=== PATIENT | male | born 1990 | race Caucasian/White ===

== ENCOUNTER 2021-03-26 10:03 | Emergency (ER) | payer MEDICAID, SELFPAY ==
--- NOTE | ~2021-03-26 | XR_ITS ---
EXAMINATION: XR CHEST CLINICAL INFORMATION: Palpitations COMPARISON: 07/03/2017 TECHNIQUE: Frontal view of the chest was obtained. FINDINGS: Stable cardiac and mediastinal silhouette. Ena are stable in appearance. No focal consolidation, effusion, edema or pneumothorax. XR/XR chest 1V IMPRESSION: No evidence of acute pulmonary process.
[2021-03-26 10:39] VITALS: BP 154/105; PULSE 100; RESP 18; TEMP 37.3; O2SAT 98; BMI 35.9
--- NOTE | 2021-03-26 10:57 | ED_ITS ---
HPI - Arrhythmia/Palpitations General Chief Complaint: Arrhythmia/Palpitations Stated Complaint: PALPATIONS Time Seen by Provider: 03/26/21 10:57 Source: patient Mode of arrival: ambulatory Limitations: no limitations History of Present Illness MD complaint: skipped beats and palpitations Onset (ago): hour(s) (2) Duration: intermittent Severity: moderate Context: occurred during rest Arrhythmia history: other (PVCs) Associated symptoms: shortness of breath, anxiety and diaphoresis Related Data Previous Rx's Medication Instructions Recorded metoprolol succinate [Toprol XL] 12.5 mg PO DAILY #30 tab 03/26/21 Allergies Allergy/AdvReac Type Severity Reaction Status Date / Time penicillin V Allergy Unknown Unverified 05/09/14 00:00 Penicillins [PCN] Allergy Unknown UNKNOWN Unverified 08/13/20 17:06 Review of Systems Review of Systems: Constitutional : No Fever, No Chills ENT/Mouth : No sore throat, No Rhinorrhea, No Swallowing Difficulty Eyes: No Eye Pain, No Swelling, No Redness Cardiovascular : No Chest Pain, positive SOB, No Orthopnea, no Edema, pos palpitations Respiratory : No Cough, No Sputum, No Wheezing, positive dyspnea Gastrointestinal : No Nausea, No Vomiting, No Diarrhea, No abdominal Pain, No Hematochezia, No Melena Genitourinary : No Dysuria, No Urinary Frequency, No Hematuria Musculoskeletal : No joint pain, No Myalgias Skin : No Skin Lesions, No rash Neuro : No Weakness, No Numbness, No Dizziness, No Headache Psych : No Anxiety/Panic, No Depression Heme/Lymph: No Bruising, No Lymphadenopathy Endocrine : No Polyuria, No Polydipsia All other systems reviewed and are negative [facility] Past Medical History Attestation statement: The following information was validated with the patient. Medical History Anxiety Heart palpitations Social History Social History (Updated 03/26/21 @ 11:13 by Anabela Aguero DO) Alcohol intake: never Smoking Status: Never smoker Use of substances other than those prescribed or required for medical reasons: No Advance Directives: No Advance Directives Information Provided: No Physical Exam Vital Signs: Vital Signs: Last Vital Signs Temp 99.2 F 03/26/21 12:19 Pulse 105 H 03/26/21 13:44 Resp 16 03/26/21 13:44 BP 143/95 H 03/26/21 13:44 Pulse Ox 98 03/26/21 13:44 Body Mass Index 35.9 Appearance: Alert. Oriented X3. No acute distress. Anxious Eyes: Pupils equal, round and reactive to light. ENT: Pharynx normal. Neck: Normal inspection. Neck supple. CVS: Normal heart rate and rhythm. Pulses normal. Respiratory: No respiratory distress. Breath sounds normal. Abdomen: Soft and nontender. Skin: Skin warm and dry. Normal skin color. Normal skin turgor. Extremities: No lower extremity edema. No calf ttp Neuro: Oriented X 3. No motor deficit. No sensory deficit. Course Course Course Narrative: no acute findings, troponin and ddimer negative at this time will DC home with cardiology follow up MDM - Arrhythmia/Palpitations MDM Narrative Medical decision making narrative: 30 yo male with hx of anxiety and palpitations - used to be on propanolol and sertraline but doesn't like how it makes him feel comes in today wtih c/o palpitations again and dyspnea, will obtain basic labs, EKG, ddimer, observe on tele may benefit from [employer] Lab Data Result diagrams: 03/26/21 11:28 03/26/21 11:28 Labs: Lab Results 03/26/21 03/26/21 03/26/21 Range/Units 11:28 11:28 11:28 WBC 8.8 (4.8-10.8) X10*3/uL RBC 6.10 H (4.60-5.80) X10*6/uL Hgb 16.6 (14.0-18.0) g/dl Hct 49.3 (42-52) % MCV 80.8 (80-98) fL MCH 27.2 (27.0-33.0) pg MCHC 33.7 (31.0-36.0) g/dl RDW 13.6 (11.0-16.0) % Plt Count 208 (160-400) X10*3/uL MPV 10.8 (9.4-12.4) fL Immature Gran % (Auto) 0.2 (0.0-0.4) % Neut % (Auto) 67.1 (45-73) % Lymph % (Auto) 25.5 (20-40) % [place] % (Auto) 5.8 (2-11) % Eos % (Auto) 1.1 (0-4) % Baso % (Auto) 0.3 (0-2) % Lymph # (Auto) 2.3 (1.2-4.9) X10*3/uL [place] # (Auto) 0.5 (0.1-1.2) X10*3/uL Eos # (Auto) 0.1 (0.0-0.4) X10*3/uL Baso # (Auto) 0.0 (0.0-0.2) X10*3/uL Abs Immat Gran (auto) 0.02 (0.00-0.03) X10*3/uL Absolute Neuts (auto) 5.9 (2.0-8.3) X10*3/uL Absolute Nucleated RBC 0.000 (0.0-0.012) X10*3/uL Nucleated RBC % (auto) 0.0 (0.0-0.2) /100WBC D-Dimer < 200 NG/ML Sodium 138 (135-145) mmol/L Potassium 4.1 (3.3-5.1) mmol/L Chloride 102 (96-108) mmol/L Carbon Dioxide 27 (22-29) mmol/L Anion Gap 13 (12-20) BUN 10 (9-16) mg/dL Creatinine 0.94 (0.5-1.4) mg/dL Estim Creat Clear Calc 153.8 Estimated GFR > 60 Random Glucose 106 (60-115) mg/dL Calcium 9.9 (8.4-10.2) mg/dL Magnesium 2.3 (1.6-2.6) mg/dL Total Bilirubin 0.7 (0.0-1.0) mg/dL Direct Bilirubin 0.2 (0.0-0.5) mg/dL AST 312 H (5-37) U/L ALT 56 H (0-40) U/L Alkaline Phosphatase 88 (39-117) U/L Troponin I High Sens (<3.5-35.0) ng/L Total Protein 7.5 (6.5-8.0) g/dL Albumin 4.7 (3.5-5.0) g/dL TSH 1.56 (0.32-4.0) uIU/mL Urine Opiates Screen (Not Detect) Ur Barbiturates Screen (Not Detect) Ur Phencyclidine Scrn (Not Detect) Ur Amphetamines Screen (Not Detect) U Benzodiazepines Scrn (Not Detect) Urine Cocaine Screen (Not Detect) U Marijuana (THC) Screen (Not Detect) 03/26/21 03/26/21 03/26/21 Range/Units 11:28 11:28 11:28 WBC (4.8-10.8) X10*3/uL RBC (4.60-5.80) X10*6/uL Hgb (14.0-18.0) g/dl Hct (42-52) % MCV (80-98) fL MCH (27.0-33.0) pg MCHC (31.0-36.0) g/dl RDW (11.0-16.0) % Plt Count (160-400) X10*3/uL MPV (9.4-12.4) fL Immature Gran % (Auto) (0.0-0.4) % Neut % (Auto) (45-73) % Lymph % (Auto) (20-40) % [place] % (Auto) (2-11) % Eos % (Auto) (0-4) % Baso % (Auto) (0-2) % Lymph # (Auto) (1.2-4.9) X10*3/uL [place] # (Auto) (0.1-1.2) X10*3/uL Eos # (Auto) (0.0-0.4) X10*3/uL Baso # (Auto) (0.0-0.2) X10*3/uL Abs Immat Gran (auto) (0.00-0.03) X10*3/uL Absolute Neuts (auto) (2.0-8.3) X10*3/uL Absolute Nucleated RBC (0.0-0.012) X10*3/uL Nucleated RBC % (auto) (0.0-0.2) /100WBC D-Dimer NG/ML Sodium (135-145) mmol/L Potassium (3.3-5.1) mmol/L Chloride (96-108) mmol/L Carbon Dioxide (22-29) mmol/L Anion Gap (12-20) BUN (9-16) mg/dL Creatinine (0.5-1.4) mg/dL Estim Creat Clear Calc Estimated GFR Random Glucose (60-115) mg/dL Calcium (8.4-10.2) mg/dL Magnesium Cancelled (1.6-2.6) mg/dL Total Bilirubin Cancelled (0.0-1.0) mg/dL Direct Bilirubin Cancelled (0.0-0.5) mg/dL AST Cancelled (5-37) U/L ALT Cancelled (0-40) U/L Alkaline Phosphatase Cancelled (39-117) U/L Troponin I High Sens < 3.5 (<3.5-35.0) ng/L Total Protein Cancelled (6.5-8.0) g/dL Albumin Cancelled (3.5-5.0) g/dL TSH Cancelled (0.32-4.0) uIU/mL Urine Opiates Screen Not Detected (Not Detect) Ur Barbiturates Screen Not Detected (Not Detect) Ur Phencyclidine Scrn Not Detected (Not Detect) Ur Amphetamines Screen Not Detected (Not Detect) U Benzodiazepines Scrn Not Detected (Not Detect) Urine Cocaine Screen Not Detected (Not Detect) U Marijuana (THC) Screen Not Detected (Not Detect) 03/26/21 Range/Units 12:58 WBC (4.8-10.8) X10*3/uL RBC (4.60-5.80) X10*6/uL Hgb (14.0-18.0) g/dl Hct (42-52) % MCV (80-98) fL MCH (27.0-33.0) pg MCHC (31.0-36.0) g/dl RDW (11.0-16.0) % Plt Count (160-400) X10*3/uL MPV (9.4-12.4) fL Immature Gran % (Auto) (0.0-0.4) % Neut % (Auto) (45-73) % Lymph % (Auto) (20-40) % [place] % (Auto) (2-11) % Eos % (Auto) (0-4) % Baso % (Auto) (0-2) % Lymph # (Auto) (1.2-4.9) X10*3/uL [place] # (Auto) (0.1-1.2) X10*3/uL Eos # (Auto) (0.0-0.4) X10*3/uL Baso # (Auto) (0.0-0.2) X10*3/uL Abs Immat Gran (auto) (0.00-0.03) X10*3/uL Absolute Neuts (auto) (2.0-8.3) X10*3/uL Absolute Nucleated RBC (0.0-0.012) X10*3/uL Nucleated RBC % (auto) (0.0-0.2) /100WBC D-Dimer NG/ML Sodium (135-145) mmol/L Potassium (3.3-5.1) mmol/L Chloride (96-108) mmol/L Carbon Dioxide (22-29) mmol/L Anion Gap (12-20) BUN (9-16) mg/dL Creatinine (0.5-1.4) mg/dL Estim Creat Clear Calc Estimated GFR Random Glucose (60-115) mg/dL Calcium (8.4-10.2) mg/dL Magnesium 2.3 (1.6-2.6) mg/dL Total Bilirubin (0.0-1.0) mg/dL Direct Bilirubin (0.0-0.5) mg/dL AST (5-37) U/L ALT (0-40) U/L Alkaline Phosphatase (39-117) U/L Troponin I High Sens (<3.5-35.0) ng/L Total Protein (6.5-8.0) g/dL Albumin (3.5-5.0) g/dL TSH 1.08 (0.32-4.0) uIU/mL Urine Opiates Screen (Not Detect) Ur Barbiturates Screen (Not Detect) Ur Phencyclidine Scrn (Not Detect) Ur Amphetamines Screen (Not Detect) U Benzodiazepines Scrn (Not Detect) Urine Cocaine Screen (Not Detect) U Marijuana (THC) Screen (Not Detect) ECG Data Attestation: I personally reviewed and interpreted this ECG as follows: ECG interpretation date: 03/26/21 ECG interpretation time: 11:08 Interpretation: Rate: 115 Rhythm: sinus tachycardia [place]: right Normal P waves. Normal AGNES. Normal QRS complex. ST T wave : normal, no COLLIN qTC: normal prior studies: no acute ischemia The study has been interpreted contemporaneously by me. . Discharge Plan Discharge Clinical Impression: Palpitations, Anxiety Patient Disposition: Home, Self-Care Instructions: Heart Palpitations (ED), Anxiety (ED) Additional Instructions: return to ED for any worsening symptoms or concerns Prescriptions: New metoprolol succinate [Toprol XL] 25 mg tablet extended release 24 hr 12.5 mg PO DAILY Qty: 30 RF: 0 Referrals: Physician,None [Primary Care Provider] - 2 days Stand Alone Forms: Work/School Release
[2021-03-26 11:36] LABS: MANUAL DIFF FLAG NO
[2021-03-26 11:48] LABS: Basophils Percent Auto 0.3 % (0-2); Eosinophils Absolute Auto 0.1 X10*3/uL (0.0-0.4); Eosinophils Percent Auto 1.1 % (0-4); Hematocrit 49.3 % (42-52); Hemoglobin 16.6 g/dl (14.0-18.0); Imm Gran Abs Auto 0.02 X10*3/uL (0.00-0.03); Imm Gran Pct Auto 0.2 % (0.0-0.4); Lymphocytes Absolute Auto 2.3 X10*3/uL (1.2-4.9); Lymphocytes Percent Auto 25.5 % (20-40); Mean Corpuscular HGB Conc 33.7 g/dl (31.0-36.0); Mean Corpuscular Hemoglobin 27.2 pg (27.0-33.0); Mean Corpuscular Volume 80.8 fL (80-98); Mean Platelet Volume 10.8 fL (9.4-12.4); Monocytes Absolute Auto 0.5 X10*3/uL (0.1-1.2); Monocytes Percent Auto 5.8 % (2-11); Neutrophils Absolute Auto 5.9 X10*3/uL (2.0-8.3); Neutrophils Percent Auto 67.1 % (45-73); Platelet Count 208 X10*3/uL (160-400); Red Cell Distribution Width 13.6 % (11.0-16.0); White Blood Count 8.8 X10*3/uL (4.8-10.8)
[2021-03-26 11:55] LABS: D Dimer < 200 NG/ML
[2021-03-26 12:08] LABS: Troponin-I High Sensitivity < 3.5 ng/L (<3.5-35.0)
[2021-03-26 12:09] LABS: Alanine Aminotransferase 56 U/L (0-40); Albumin Level 4.7 g/dL (3.5-5.0); Alkaline Phosphatase 88 U/L (39-117); Anion Gap 13 (12-20); Aspartate Amino Transferase 312 U/L (5-37); Bilirubin Direct 0.2 mg/dL (0.0-0.5); Bilirubin Total 0.7 mg/dL (0.0-1.0); Blood Urea Nitrogen 10 mg/dL (9-16); Calcium 9.9 mg/dL (8.4-10.2); Carbon Dioxide 27 mmol/L (22-29); Chloride 102 mmol/L (96-108); Creatinine Clr Calc Pharmacy 153.8; Estimated Glomerular Filt Rate > 60; Glucose Random 106 mg/dL (60-115); Magnesium 2.3 mg/dL (1.6-2.6); Potassium 4.1 mmol/L (3.3-5.1); Sodium 138 mmol/L (135-145); Total Protein 7.5 g/dL (6.5-8.0)
[2021-03-26 12:17] LABS: Amphetamine Screen Urine Not Detected (Not Detect); Barbiturates, Urine Not Detected (Not Detect); Benzodiazepines Screen Urine Not Detected (Not Detect); Cannabinoid Screen Urine Not Detected (Not Detect); Cocaine Screen Urine Not Detected (Not Detect); Opiate Screen Urine Not Detected (Not Detect); Phencyclidine Screen Urine Not Detected (Not Detect)
[2021-03-26 12:19] VITALS: BP 154/105; PULSE 100; RESP 18; TEMP 37.3; O2SAT 98
[2021-03-26 12:28] LABS: Thyroid Stimulating Hormone 1.56 uIU/mL (0.32-4.0)
[2021-03-26 13:36] LABS: Magnesium 2.3 mg/dL (1.6-2.6)
[2021-03-26 13:44] VITALS: BP 143/95; PULSE 105; RESP 16; O2SAT 98
[2021-03-26 13:59] LABS: Thyroid Stimulating Hormone 1.08 uIU/mL (0.32-4.0)
--- NOTE | 2021-03-27 07:15 | ECG_ITS ---
Test Reason : HP Blood Pressure : / mmHG Vent. Rate : 115 BPM Atrial Rate : 115 BPM P-R Int : 138 ms QRS Dur : 088 ms QT Int : 318 ms P-R-T Axes : 073 103 041 degrees QTc Int : 439 ms Sinus tachycardia Possible Left atrial enlargement Rightward axis Possible Inferior infarct , age undetermined Abnormal ECG When compared to the previous EKG of Inferior infarct criteria are now present Referred By: Anabela Aguero Electronically Signed By:DEMOND GUZMÁN MD
== END 2021-03-26 14:16 | disposition home or self-care (01) ==
PROVIDERS: Emergency Provider Emergency Medicine
DX: R00.2 Palpitations (principal); F41.9 Anxiety disorder, unspecified
CPT/HCPCS: 36415; 71045; 80048; 80076; 80307; 83735; 84443; 84484; 85025; 85379; 93005; 99283; 99285

== ENCOUNTER 2021-04-03 00:49 | Emergency (ER) | payer MEDICAID, SELFPAY ==
[2021-04-03 01:02] VITALS: BP 110/80; BP 149/102; PULSE 100; PULSE 106; RESP 15; TEMP 36.6; O2SAT 100; BMI 34.9
--- NOTE | 2021-04-03 01:27 | ED.GENADULT ---
HPI - General Adult General Chief complaint: Arrhythmia/Palpitations Stated complaint: palpitations anxiety Time Seen by Provider: 04/03/21 01:03 Source: patient Mode of arrival: ambulatory Limitations: no limitations History of Present Illness HPI narrative: Patient comes emergency room complaining anxiety and palpitations. Patient states he is known to have anxiety, states he used to be on propanolol and sertraline, however he did not like the side effects. Patient was seen here on March 26, patient was started on metoprolol 12.5 mg once a day. Patient states that today he was at home, at rest, started having a panic attack, palpitations, chest pressure. Patient states this was a worker's panic attack he has had in years, he thought he was having a heart attack and therefore called the ambulance. Once the ambulance arrived to his residence, patient's symptoms self-resolved Related Data Previous Rx's Medication Instructions Recorded metoprolol succinate [Toprol XL] 12.5 mg PO DAILY #30 tab 03/26/21 Allergies Allergy/AdvReac Type Severity Reaction Status Date / Time penicillin V Allergy Unknown Hives Verified 04/03/21 01:02 Penicillins [PCN] Allergy Unknown UNKNOWN Verified 04/03/21 01:02 Review of Systems Review of Systems: Constitutional : No Weight loss, No Fever, No Chills, No Night Sweats, No Fatigue, No Malaise ENT/Mouth : No Hearing loss, No Ear Pain, No Nasal Congestion, No Sinus Pain, No Hoarseness, No sore throat, No Rhinorrhea, No Swallowing Difficulty Eyes: No Eye Pain, No Swelling, No Redness, No Foreign Body, No Discharge, No Vision Changes Cardiovascular : No Chest Pain, No SOB, No Dyspnea on Exertion, No Orthopnea, No Edema, complaining of Palpitations Respiratory : No Cough, No Sputum, No Wheezing, No Smoke Exposure, No Dyspnea Gastrointestinal : No Nausea, No Vomiting, No Diarrhea, No Constipation, No abdominal Pain, No Hematochezia, No Melena Genitourinary : no irregular bleeding, No Dysuria, No Urinary Frequency, No Hematuria, No Urinary Incontinence, No Urgency, No Flank Pain, No Urinary Flow Changes, No Hesitancy Musculoskeletal : No joint pain, No Myalgias, No Joint Swelling Skin : No Skin Lesions, No rash Neuro : No Weakness, No Numbness, No Paresthesias, No Loss of Consciousness, No Dizziness, No Headache Psych : Complaining of anxiety and panic attack No Depression, No SI/HI/AH/VH, No Social Issues, Heme/Lymph: No Bruising, No Bleeding,No Lymphadenopathy Endocrine : No Polyuria, No Polydipsia, No Temperature Intolerance [facility] Past Medical History Medical History Anxiety Heart palpitations Social History Social History (Updated 03/26/21 @ 11:13 by Anabela Aguero DO) Alcohol intake: never Smoking Status: Never smoker Advance Directives: No Advance Directives Information Provided: No Physical Exam Vital Signs: Vital Signs: Last Vital Signs Temp 97.9 F 04/03/21 01:02 Pulse 100 04/03/21 01:02 Resp 15 04/03/21 01:02 BP 149/102 H 04/03/21 01:02 Pulse Ox 100 04/03/21 01:02 Body Mass Index 34.9 Appearance: Alert. Oriented X3. No acute distress. Eyes: Pupils equal, round and reactive to light. ENT: Pharynx normal. Neck: Normal inspection. Neck supple. No lymph nodes noted. No crepitus CVS: Normal heart rate and rhythm. Pulses normal. Normal S1 and S2 Respiratory: No respiratory distress. Breath sounds normal. No Wheezing. No rales Abdomen: Soft and nontender. No rigidity. No distention. good BS x4 Skin: Skin warm and dry. Normal skin color. Normal skin turgor. Extremities: No lower extremity edema. No lower extremity edema. No Lacerations. No Rash Neuro: Oriented X 3. No motor deficit. No sensory deficit. Moving all extermities. No slurred speech. Course Course Course Narrative: Patient's symptoms are likely related to anxiety/panic attack. I discussed with the patient that his blood pressure can tolerate a full dose metoprolol succinate 25 mg once a day. Chemistry and troponin pending. Sign-out given to Dr. Tavarez Medical Decision Making Lab Data Result diagrams: 04/03/21 01:46 04/03/21 01:46 Labs: Lab Results 04/03/21 Range/Units 01:46 WBC 9.6 (4.8-10.8) X10*3/uL RBC 5.73 (4.60-5.80) X10*6/uL Hgb 15.8 (14.0-18.0) g/dl Hct 46.3 (42-52) % MCV 80.8 (80-98) fL MCH 27.6 (27.0-33.0) pg MCHC 34.1 (31.0-36.0) g/dl RDW 13.4 (11.0-16.0) % Plt Count 208 (160-400) X10*3/uL MPV 10.6 (9.4-12.4) fL Immature Gran % (Auto) 0.3 (0.0-0.4) % Neut % (Auto) 49.3 (45-73) % Lymph % (Auto) 40.1 H (20-40) % [place] % (Auto) 6.8 (2-11) % Eos % (Auto) 3.0 (0-4) % Baso % (Auto) 0.5 (0-2) % Lymph # (Auto) 3.8 (1.2-4.9) X10*3/uL [place] # (Auto) 0.7 (0.1-1.2) X10*3/uL Eos # (Auto) 0.3 (0.0-0.4) X10*3/uL Baso # (Auto) 0.1 (0.0-0.2) X10*3/uL Abs Immat Gran (auto) 0.03 (0.00-0.03) X10*3/uL Absolute Neuts (auto) 4.7 (2.0-8.3) X10*3/uL Absolute Nucleated RBC 0.000 (0.0-0.012) X10*3/uL Nucleated RBC % (auto) 0.0 (0.0-0.2) /100WBC ECG Data Attestation: I personally reviewed and interpreted this ECG as follows: (Sinus tachycardia, heart rate 101, no ST segment depressions or elevations, no T-wave inversions, QTC 414) Discharge Plan Discharge Clinical Impression: Anxiety, Palpitations Patient Disposition: Home, Self-Care Instructions: Heart Palpitations (ED), Anxiety (ED) Additional Instructions: Please increase your dose of metoprolol succinate to 25 mg once a day. Prescriptions: No Action metoprolol succinate [Toprol XL] 25 mg tablet extended release 24 hr 12.5 mg PO DAILY Qty: 30 RF: 0
[2021-04-03 01:51] LABS: MANUAL DIFF FLAG NO
[2021-04-03 01:56] LABS: Basophils Absolute Auto 0.1 X10*3/uL (0.0-0.2); Basophils Percent Auto 0.5 % (0-2); Eosinophils Absolute Auto 0.3 X10*3/uL (0.0-0.4); Hematocrit 46.3 % (42-52); Hemoglobin 15.8 g/dl (14.0-18.0); Imm Gran Abs Auto 0.03 X10*3/uL (0.00-0.03); Imm Gran Pct Auto 0.3 % (0.0-0.4); Lymphocytes Absolute Auto 3.8 X10*3/uL (1.2-4.9); Lymphocytes Percent Auto 40.1 % (20-40); Mean Corpuscular HGB Conc 34.1 g/dl (31.0-36.0); Mean Corpuscular Hemoglobin 27.6 pg (27.0-33.0); Mean Corpuscular Volume 80.8 fL (80-98); Mean Platelet Volume 10.6 fL (9.4-12.4); Monocytes Absolute Auto 0.7 X10*3/uL (0.1-1.2); Monocytes Percent Auto 6.8 % (2-11); Neutrophils Absolute Auto 4.7 X10*3/uL (2.0-8.3); Neutrophils Percent Auto 49.3 % (45-73); Platelet Count 208 X10*3/uL (160-400); Red Blood Count 5.73 X10*6/uL (4.60-5.80); Red Cell Distribution Width 13.4 % (11.0-16.0); White Blood Count 9.6 X10*3/uL (4.8-10.8)
[2021-04-03 02:19] LABS: Anion Gap 13 (12-20); Blood Urea Nitrogen 11 mg/dL (9-16); Calcium 9.6 mg/dL (8.4-10.2); Carbon Dioxide 26 mmol/L (22-29); Chloride 103 mmol/L (96-108); Creatinine Clr Calc Pharmacy 168.6; Estimated Glomerular Filt Rate > 60; Glucose Random 95 mg/dL (60-115); Sodium 138 mmol/L (135-145)
[2021-04-03 02:24] LABS: Troponin-I High Sensitivity < 3.5 ng/L (<3.5-35.0)
--- NOTE | 2021-04-03 07:31 | ECG_ITS ---
Test Reason : PALPUATIONS Blood Pressure : / mmHG Vent. Rate : 101 BPM Atrial Rate : 101 BPM P-R Int : 158 ms QRS Dur : 088 ms QT Int : 320 ms P-R-T Axes : 065 086 035 degrees QTc Int : 414 ms Sinus tachycardia Possible Left atrial enlargement Cannot rule out inferior infarct Abnormal ECG When compared to the previous EKG of No significant changes seen Referred By: Martha Carter Electronically Signed By:Mat Ferreira
== END 2021-04-03 05:54 | disposition home or self-care (01) ==
LOC: HO.ED 01:57
PROVIDERS: Emergency Provider Emergency Medicine
DX: R00.2 Palpitations (principal); F41.9 Anxiety disorder, unspecified
CPT/HCPCS: 36415; 80048; 84484; 85025; 93005; 99283

== ENCOUNTER 2021-05-05 10:30 | Emergency (ER) | payer MEDICAID, SELFPAY ==
--- NOTE | 2021-05-05 | ECG_ITS ---
Test Reason : CHEST PAIN Blood Pressure : / mmHG Vent. Rate : 091 BPM Atrial Rate : 091 BPM P-R Int : 158 ms QRS Dur : 086 ms QT Int : 332 ms P-R-T Axes : 059 077 046 degrees QTc Int : 408 ms Normal sinus rhythm Normal ECG When compared with ECG of 03-APR-2021 01:03, No significant change was found Referred By: Generic ED Physician Electronically Signed By:DEMOND GUZMÁN MD
--- NOTE | ~2021-05-05 | XR_ITS ---
EXAMINATION: XR CHEST CLINICAL INFORMATION: Chest pain COMPARISON: None TECHNIQUE: Frontal view of the chest was obtained. FINDINGS: No significant abnormality is noted involving the heart, lungs, mediastinum, bony thorax or soft tissues. XR/XR chest 1V IMPRESSION: Unremarkable chest examination.
[2021-05-05 10:54] VITALS: BP 139/100; PULSE 94; RESP 18; TEMP 36.6; O2SAT 100; BMI 35.2
--- NOTE | 2021-05-05 11:06 | ED.CHESTPAIN ---
HPI - Chest Pain General Chief Complaint: Chest Pain Stated Complaint: cp Time Seen by Provider: 05/05/21 10:32 Source: patient and EMS Mode of arrival: EMS Limitations: no limitations History of Present Illness HPI narrative: 30 y/o male with history of anxiety presenting to the ER from work via EMS with acute onset of chest pain and SOB today in the setting of an anxiety attack. He has a history of similar presentations and has been trying to get in with the partial program here. He reports yesterday he was feeling sniffley and lost his sense of taste and smell. He had return of his sense today and went to work. 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 He was breathing heavy and having tingling in his left hand. He was anxious and had palpitations. MD complaint: chest pain and other (anxiety ) Onset (ago): hour(s) Timing of current episode: episodic Prior episodes: Yes Onset: during exertion Pain location: left chest Pain radiation: left arm Severity: moderate Quality: heaviness Relieving factors: rest Exacerbating factors: stress Related Data Previous Rx's Medication Instructions Recorded metoprolol succinate [Toprol XL] 12.5 mg PO DAILY #30 tab 03/26/21 hydroxyzine HCl 25 mg PO BID PRN #7 tab 04/03/21 hydroxyzine HCl 25 mg PO TID PRN #10 tab 05/05/21 Allergies Allergy/AdvReac Type Severity Reaction Status Date / Time penicillin V Allergy Unknown Hives Verified 04/03/21 01:02 Penicillins [PCN] Allergy Unknown UNKNOWN Verified 04/03/21 01:02 Review of Systems Review of Systems: Constitutional: No Fever, No Chills ENT/Mouth: No sore throat, No Rhinorrhea, No Swallowing Difficulty Eyes: No Eye Pain, No Swelling, No Redness Cardiovascular: + Chest Pain, + SOB, No Orthopnea, No Edema Respiratory: No Cough, No Sputum, No Wheezing, No dyspnea Gastrointestinal: No Nausea, No Vomiting, No Diarrhea, No abdominal Pain Genitourinary: No Dysuria, No Urinary Frequency, No Hematuria Musculoskeletal: No joint pain, No Myalgias Skin: No Skin Lesions, No rash Neuro: No Weakness, No Numbness, No Dizziness, + Headache Psych: + Anxiety/Panic, No Depression Heme/Lymph: No Bruising, No Lymphadenopathy Endocrine: No Polyuria, No Polydipsia [facility] Past Medical History Attestation statement: The following information was validated with the patient. Medical History Anxiety Heart palpitations Social History Social History (Updated 03/26/21 @ 11:13 by Anabela Aguero DO) Alcohol intake: never Advance Directives: No Advance Directives Information Provided: Yes Physical Exam Vital Signs: Vital Signs: Last Vital Signs Temp 98 F 05/05/21 10:54 Pulse 94 05/05/21 10:54 Resp 18 05/05/21 10:54 BP 139/100 H 05/05/21 10:54 Pulse Ox 100 05/05/21 10:54 Body Mass Index 35.2 Appearance: Alert. Oriented X3. No acute distress. Eyes: Pupils equal, round and reactive to light. ENT: Pharynx normal. Neck: Normal inspection. Neck supple. CVS: Normal heart rate and rhythm. Pulses normal. Respiratory: No respiratory distress. Breath sounds normal. Abdomen: Soft and nontender. +BS x4 Skin: Skin warm and dry. Normal skin color. Normal skin turgor. No rashes. Extremities: No lower extremity edema. Neuro: Oriented X 3. No motor deficit. No sensory deficit. Course Course Course Narrative: 30 y/o male with history of anxiety and palpitations presenting with acute anxiety attack today at work associated with chest heaviness and SOB. Both are now resolved. History of the same. Non-toxic appearing. Will get CXR, lab workup and EKG. Anticipate this is all related to ongoing untreated anxiety but will r/o cardiac and pulmonary causes. CARE team consult placed to help facilitate getting into a local partial program for therapy and support. Reevaluation(s) Reevaluation #1: Lab workup is unremarkable. CXR negative. He remains chest pain free without SOB. CARE team consult pending. Patient appreciative. Reevaluation #2: Stable for discharge home with outpatient services. [facility] - Chest Pain Medical Records Data Attestation: I reviewed the patient's medical records. Lab Data Attestation: I reviewed the patient's lab results. Result diagrams: 05/05/21 11:02 05/05/21 11:02 Labs: Lab Results 05/05/21 05/05/21 05/05/21 Range/Units 11:02 11:02 11:02 WBC 8.0 (4.8-10.8) X10*3/uL RBC 5.63 (4.60-5.80) X10*6/uL Hgb 15.4 (14.0-18.0) g/dl Hct 46.0 (42-52) % MCV 81.7 (80-98) fL MCH 27.4 (27.0-33.0) pg MCHC 33.5 (31.0-36.0) g/dl RDW 14.1 (11.0-16.0) % Plt Count 203 (160-400) X10*3/uL MPV 11.4 (9.4-12.4) fL Immature Gran % (Auto) 0.3 (0.0-0.4) % Neut % (Auto) 61.8 (45-73) % Lymph % (Auto) 26.2 (20-40) % Kingfisher % (Auto) 7.4 (2-11) % Eos % (Auto) 3.8 (0-4) % Baso % (Auto) 0.5 (0-2) % Lymph # (Auto) 2.1 (1.2-4.9) X10*3/uL Kingfisher # (Auto) 0.6 (0.1-1.2) X10*3/uL Eos # (Auto) 0.3 (0.0-0.4) X10*3/uL Baso # (Auto) 0.0 (0.0-0.2) X10*3/uL Abs Immat Gran (auto) 0.02 (0.00-0.03) X10*3/uL Absolute Neuts (auto) 4.9 (2.0-8.3) X10*3/uL Absolute Nucleated RBC 0.000 (0.0-0.012) X10*3/uL Nucleated RBC % (auto) 0.0 (0.0-0.2) /100WBC Hold Blue Top SEE NOTE Sodium 138 (135-145) mmol/L Potassium 4.1 (3.3-5.1) mmol/L Chloride 109 H (96-108) mmol/L Carbon Dioxide 22 (22-29) mmol/L Anion Gap 11 L (12-20) BUN 11 (9-16) mg/dL Creatinine 0.82 (0.5-1.4) mg/dL Estim Creat Clear Calc 174.6 Estimated GFR > 60 Random Glucose 104 (60-115) mg/dL Calcium 9.4 (8.4-10.2) mg/dL Magnesium 2.1 (1.6-2.6) mg/dL Total Bilirubin 0.2 (0.0-1.0) mg/dL Direct Bilirubin < 0.2 (0.0-0.5) mg/dL AST 17 D (5-37) U/L ALT 23 (0-40) U/L Alkaline Phosphatase 77 (39-117) U/L Troponin I High Sens (<3.5-35.0) ng/L Total Protein 6.7 (6.5-8.0) g/dL Albumin 4.3 (3.5-5.0) g/dL Coronavirus (PCR) (Negative) Influenza Type A (PCR) (Negative) Influenza Type B (PCR) (Negative) RSV RNA Qual (PCR) (Negative) 05/05/21 05/05/21 Range/Units 11:02 11:02 WBC (4.8-10.8) X10*3/uL RBC (4.60-5.80) X10*6/uL Hgb (14.0-18.0) g/dl Hct (42-52) % MCV (80-98) fL MCH (27.0-33.0) pg MCHC (31.0-36.0) g/dl RDW (11.0-16.0) % Plt Count (160-400) X10*3/uL MPV (9.4-12.4) fL Immature Gran % (Auto) (0.0-0.4) % Neut % (Auto) (45-73) % Lymph % (Auto) (20-40) % Kingfisher % (Auto) (2-11) % Eos % (Auto) (0-4) % Baso % (Auto) (0-2) % Lymph # (Auto) (1.2-4.9) X10*3/uL Kingfisher # (Auto) (0.1-1.2) X10*3/uL Eos # (Auto) (0.0-0.4) X10*3/uL Baso # (Auto) (0.0-0.2) X10*3/uL Abs Immat Gran (auto) (0.00-0.03) X10*3/uL Absolute Neuts (auto) (2.0-8.3) X10*3/uL Absolute Nucleated RBC (0.0-0.012) X10*3/uL Nucleated RBC % (auto) (0.0-0.2) /100WBC Hold Blue Top Sodium (135-145) mmol/L Potassium (3.3-5.1) mmol/L Chloride (96-108) mmol/L Carbon Dioxide (22-29) mmol/L Anion Gap (12-20) BUN (9-16) mg/dL Creatinine (0.5-1.4) mg/dL Estim Creat Clear Calc Estimated GFR Random Glucose (60-115) mg/dL Calcium (8.4-10.2) mg/dL Magnesium (1.6-2.6) mg/dL Total Bilirubin (0.0-1.0) mg/dL Direct Bilirubin (0.0-0.5) mg/dL AST (5-37) U/L ALT (0-40) U/L Alkaline Phosphatase (39-117) U/L Troponin I High Sens < 3.5 (<3.5-35.0) ng/L Total Protein (6.5-8.0) g/dL Albumin (3.5-5.0) g/dL Coronavirus (PCR) NEGATIVE (Negative) Influenza Type A (PCR) NEGATIVE (Negative) Influenza Type B (PCR) NEGATIVE (Negative) RSV RNA Qual (PCR) NEGATIVE (Negative) ECG Data ECG #1: Attestation: I personally reviewed and interpreted this ECG as follows: ECG interpretation date: 05/05/21 ECG interpretation time: 12:00 Prior ECG tracings: available for review Interpretation: normal sinus rhythm, HR 91 bpm, normal OH interval. NO ST depressions or elevations. unchanged from prior EKG Discharge Plan Discharge Clinical Impression: Anxiety Patient Disposition: Home, Self-Care Instructions: Anxiety (ED) Additional Instructions: You lab workup today was unremarkable. Your chest x-ray was normal. Your EKG was unremarkable. Recommend following up with the partial program here at the hospital for your ongoing anxiety. As needed anxiety medication was sent to your pharmacy. Follow up with your doctor. Prescriptions: New hydroxyzine HCl 25 mg tablet 25 mg PO TID PRN (Reason: anxiety) Qty: 10 RF: 0 No Action metoprolol succinate [Toprol XL] 25 mg tablet extended release 24 hr 12.5 mg PO DAILY Qty: 30 RF: 0 hydroxyzine HCl 25 mg tablet 25 mg PO BID PRN (Reason: anxiety) Qty: 7 RF: 0
[2021-05-05 11:07] LABS: MANUAL DIFF FLAG NO
[2021-05-05 11:12] LABS: Basophils Percent Auto 0.5 % (0-2); Eosinophils Absolute Auto 0.3 X10*3/uL (0.0-0.4); Eosinophils Percent Auto 3.8 % (0-4); Hemoglobin 15.4 g/dl (14.0-18.0); Imm Gran Abs Auto 0.02 X10*3/uL (0.00-0.03); Imm Gran Pct Auto 0.3 % (0.0-0.4); Lymphocytes Absolute Auto 2.1 X10*3/uL (1.2-4.9); Lymphocytes Percent Auto 26.2 % (20-40); Mean Corpuscular HGB Conc 33.5 g/dl (31.0-36.0); Mean Corpuscular Hemoglobin 27.4 pg (27.0-33.0); Mean Corpuscular Volume 81.7 fL (80-98); Mean Platelet Volume 11.4 fL (9.4-12.4); Monocytes Absolute Auto 0.6 X10*3/uL (0.1-1.2); Monocytes Percent Auto 7.4 % (2-11); Neutrophils Absolute Auto 4.9 X10*3/uL (2.0-8.3); Neutrophils Percent Auto 61.8 % (45-73); Platelet Count 203 X10*3/uL (160-400); Red Blood Count 5.63 X10*6/uL (4.60-5.80); Red Cell Distribution Width 14.1 % (11.0-16.0)
[2021-05-05 11:29] LABS: Alanine Aminotransferase 23 U/L (0-40); Albumin Level 4.3 g/dL (3.5-5.0); Alkaline Phosphatase 77 U/L (39-117); Anion Gap 11 (12-20); Aspartate Amino Transferase 17 U/L (5-37); Bilirubin Direct < 0.2 mg/dL (0.0-0.5); Bilirubin Total 0.2 mg/dL (0.0-1.0); Blood Urea Nitrogen 11 mg/dL (9-16); Calcium 9.4 mg/dL (8.4-10.2); Carbon Dioxide 22 mmol/L (22-29); Chloride 109 mmol/L (96-108); Creatinine Clr Calc Pharmacy 174.6; Estimated Glomerular Filt Rate > 60; Glucose Random 104 mg/dL (60-115); Magnesium 2.1 mg/dL (1.6-2.6); Potassium 4.1 mmol/L (3.3-5.1); Sodium 138 mmol/L (135-145); Total Protein 6.7 g/dL (6.5-8.0)
[2021-05-05 11:48] LABS: Influenza A PCR NEGATIVE (Negative); Influenza B PCR NEGATIVE (Negative); Resp Syncy Virus RNA Qual PCR NEGATIVE (Negative); SARS COV2 PCR INHOUSE NEGATIVE (Negative)
[2021-05-05 11:52] LABS: Troponin-I High Sensitivity < 3.5 ng/L (<3.5-35.0)
--- NOTE | 2021-05-05 14:24 | MHC.CARE ---
1230: Met with pt upon receiving a consult order from BEBO Zimmer. Pt is looking for a Partial Hospitalization program and/or a counselor. Pt has been experiencing increasing anxiety, panic attacks and nightmares. Pt reports that he suspects he may have ?mild? depression. Pt expressed his frustration with the poor outcomes of his efforts in getting into a partial program. Pt has had a few intake appointments but has been unable to attend them as he was working. Pt cannot take time off for these appointments as he has only been with his job for 2 weeks. Pt presently has Mondays and Tuesdays off. CARE TEAM contacted [facility] and scheduled an intake appointment for MondayMay 11. Pt advised of this and the structure of the program was explained. This program may conflict with pt?s work schedule, as such, a list of PHP numbers at other facilities was provided. Pt will also be referred to [facility]. This was discussed and with agreed upon by pt and BEBO Singh.
== END 2021-05-05 14:12 | disposition home or self-care (01) ==
PROVIDERS: Physician Assistant; Emergency Provider Emergency Medicine
DX: F41.9 Anxiety disorder, unspecified (principal); Z20.822 Contact with and (suspected) exposure to COVID-19; R43.8 Other disturbances of smell and taste
CPT/HCPCS: 0241U; 36415; 71045; 80048; 80076; 83735; 84484; 85025; 93005; 99283

== ENCOUNTER 2021-06-25 16:07 | Emergency (ER) | payer MEDICAID, SELFPAY ==
[2021-06-25 16:37] VITALS: BP 170/105; PULSE 103; RESP 20; TEMP 37.1; O2SAT 98; BMI 33.0
[2021-06-25 17:23] LABS: COVID-19 Test Negative (Negative)
--- NOTE | 2021-06-25 18:56 | ED.URI ---
HPI - URI/Sore Throat General Chief Complaint: Upper Respiratory Symptoms Stated Complaint: body aches, weakness Time Seen by Provider: 06/25/21 17:27 History of Present Illness HPI Narrative: Patient with 2 complaints 1 is that he has had some body aches and felt some fatigue and has had children at home who have upper respiratory symptoms, he has no cough no shortness of breath no fever no chills next complaint is he got nervous coming in the ER and has a history of anxiety and anxiety attacks and he is feeling very anxious now and feels like he is having an anxiety attack with tingling in his fingers and feeling somewhat shaky Related Data Previous Rx's Medication Instructions Recorded metoprolol succinate 25 mg 12.5 mg PO DAILY #30 tab 03/26/21 tablet,extended release 24 hr (Toprol XL) hydroxyzine HCl 25 mg tablet 25 mg PO BID PRN #7 tab 04/03/21 hydroxyzine HCl 25 mg tablet 25 mg PO TID PRN #10 tab 05/05/21 lorazepam 1 mg tablet (Ativan) 1 mg PO BID PRN #7 tab 06/25/21 Allergies Allergy/AdvReac Type Severity Reaction Status Date / Time penicillin V Allergy Unknown Hives Verified 04/03/21 01:02 Penicillins [PCN] Allergy Unknown UNKNOWN Verified 04/03/21 01:02 Review of Systems Review of Systems: Positive for body aches and fatigue as well as anxiety Head is normocephalic atraumatic Neck is supple Respiratory no acute distress, breath sounds are full clear and equal bilaterally The heart no murmur There is no pleuritic pain The ears are clear bilaterally with normal tympanic membranes and normal canals The pharynx is clear with no redness warmth or exudate, the voice is normal The abdomen soft nontender Skin no rashes Extremities no calf tenderness or swelling no leg swelling neuro no focal deficit, patient is A&O x3, communication both expression and understanding is normal and gait and balance are normal Yes all other systems are reviewed and are negative [facility] Past Medical History Medical History Anxiety Heart palpitations Social History Social History (Updated 03/26/21 @ 11:13 by Anabela Aguero DO) Alcohol intake: never Advance Directives: No Advance Directives Information Provided: Yes Physical Exam Vital Signs: Vital Signs: Last Vital Signs Temp 98.7 F 06/25/21 16:37 Pulse 103 H 06/25/21 16:37 Resp 20 06/25/21 16:37 BP 170/105 H 06/25/21 16:37 Pulse Ox 98 06/25/21 16:37 Body Mass Index 33.0 Course Course Course Narrative: Patient had a negative COVID test and was well appearing with a normal exam and feels like his anxiety is receding and never had chest pain or difficulty breathing and is discharged MDM - URI/Sore Throat Lab Data Labs: Lab Results 06/25/21 Range/Units 16:40 COVID-19 (ELISABET) Negative (Negative) COVID-19 Clin Com See Note Discharge Plan Discharge Clinical Impression: Anxiety, Body aches Patient Disposition: Home, Self-Care Additional Instructions: Your COVID test was negative Her physical exam was normal Your pulse and blood pressure were little high which could be from anxiety Use the Ativan only if needed for an anxiety attack Get a home blood pressure cuff and check her blood pressure when you are not anxious to confirm that your not developing hypertension Return any time any worse condition or any concerns Prescriptions: New lorazepam [Ativan] 1 mg tablet 1 mg PO BID PRN (Reason: anxiety) Qty: 7 RF: 0 No Action metoprolol succinate [Toprol XL] 25 mg tablet extended release 24 hr 12.5 mg PO DAILY Qty: 30 RF: 0 hydroxyzine HCl 25 mg tablet 25 mg PO BID PRN (Reason: anxiety) Qty: 7 RF: 0 hydroxyzine HCl 25 mg tablet 25 mg PO TID PRN (Reason: anxiety) Qty: 10 RF: 0 Interventions: ED Discharge Assessment Last Done: 06/25/21 17:41 Discharge Date/Time: 06/25/21 17:47
== END 2021-06-25 17:47 | disposition home or self-care (01) ==
PROVIDERS: Emergency Provider Emergency Medicine
DX: F41.9 Anxiety disorder, unspecified (principal); M79.10 Myalgia, unspecified site; Z20.822 Contact with and (suspected) exposure to COVID-19; R53.1 Weakness
CPT/HCPCS: 36415; 87635; 99283

== ENCOUNTER 2021-08-15 15:29 | Emergency (ER) | payer MEDICAID, SELFPAY ==
[2021-08-15 15:42] VITALS: BP 133/96; BP 138/86; PULSE 94; RESP 18; TEMP 36.9; O2SAT 100; O2SAT 99; BMI 29.5
--- NOTE | 2021-08-15 16:05 | ECG_ITS ---
Test Reason : PALPATIONS Blood Pressure : / mmHG Vent. Rate : 083 BPM Atrial Rate : 083 BPM P-R Int : 152 ms QRS Dur : 094 ms QT Int : 346 ms P-R-T Axes : 033 064 039 degrees QTc Int : 406 ms Normal sinus rhythm Possible Inferior infarct , age undetermined Abnormal ECG When compared with ECG of 05-MAY-2021 11:29, No significant change was found Referred By: Mayelin Joseph Electronically Signed By:FROY MAHAJAN
[2021-08-15 16:25] VITALS: BP 147/85; PULSE 91; RESP 18; TEMP 36.7; O2SAT 99
--- NOTE | 2021-08-15 16:43 | ED_ITS ---
HPI - Arrhythmia/Palpitations General Chief Complaint: Arrhythmia/Palpitations Stated Complaint: palpitations Time Seen by Provider: 08/15/21 15:48 Source: patient and EMS Mode of arrival: EMS Limitations: no limitations History of Present Illness HPI narrative: 30-year-old male with a past medical history of anxiety here with complaints of episode of dizziness plan like he might pass out while sitting at his desk doing his work. He then tells me he started to feel his heart was racing and felt short of breath with numbness in his hands and around his mouth. This lasted about 15 minutes and then self-resolved. Patient reports on arrives to the emergency department he is feeling improved. He does have a history of panic attacks and feels this is similar. Related Data Previous Rx's Medication Instructions Recorded metoprolol succinate 25 mg 12.5 mg PO DAILY #30 tab 03/26/21 tablet,extended release 24 hr (Toprol XL) hydroxyzine HCl 25 mg tablet 25 mg PO BID PRN #7 tab 04/03/21 hydroxyzine HCl 25 mg tablet 25 mg PO TID PRN #10 tab 05/05/21 lorazepam 1 mg tablet (Ativan) 1 mg PO BID PRN #7 tab 06/25/21 hydroxyzine HCl 25 mg tablet 25 mg PO TID PRN #10 tab 08/15/21 Allergies Allergy/AdvReac Type Severity Reaction Status Date / Time penicillin V Allergy Unknown Hives Verified 04/03/21 01:02 Penicillins [PCN] Allergy Unknown UNKNOWN Verified 04/03/21 01:02 Review of Systems Review of Systems: Yes all other systems are reviewed and are negative Constitutional: Constitutional: Reports no additional constitutional complaints, Denies body ache(s), Denies chills, Denies fever(s), Denies headache(s) and Denies weakness Eyes: Eyes: Reports no additional eye complaints and Denies change in vision ENT: Reports system reviewed and no additional complaints, except as documented, Reports dizziness, Denies headache(s), Denies nasal congestion, Denies nasal discharge and Denies neck pain Cardiovascular: Cardiovascular: Reports no additional cardiovascular complaints, Denies chest pain, Denies leg edema, Reports lightheadedness, Reports palpitations and Denies dyspnea Respiratory: Respiratory: Reports no additional respiratory complaints, Denies cough and Denies dyspnea Gastrointestinal: Gastrointestinal: Reports no additional gastrointestinal complaints, Denies abdominal pain, Denies diarrhea, Denies nausea and Denies vomiting Genitourinary: Genitourinary: Denies urinary incontinence Musculoskeletal: Musculoskeletal: Reports no additional musculoskeletal complaints, Denies back pain, Denies arthralgias, Denies joint swelling, Denies neck pain, Reports numbness and Denies tingling Integumentary/Breasts: Skin/Breast: Reports system reviewed and no additional complaints, except as docu and Denies rash Neurologic: Reports system reviewed and no additional complaints, except as documented, Denies Abnormal speech present, Reports dizziness, Denies headache(s), Reports numbness, Denies tingling and Denies weakness Endocrine: Endocrine: Reports palpitations PMFSH Past Medical History Attestation statement: The following information was validated with the patient. Source: old records reviewed and nursing notes reviewed Medical History Anxiety Heart palpitations Social History Social History Alcohol intake: never Advance Directives: No Advance Directives Information Provided: No Physical Exam Vital Signs: Vital Signs: Last Vital Signs Temp 98.1 F 08/15/21 16:25 Pulse 91 08/15/21 16:25 Resp 18 08/15/21 16:25 BP 147/85 H 08/15/21 16:25 Pulse Ox 99 08/15/21 16:25 Body Mass Index 29.5 Const: General: cooperative, healthy appearing, comfortable and no acute distress Orientation/consciousness: patient oriented x3 Limitations: no limitations HENMT: Head: Yes normal to inspection Ears: hearing grossly normal bilaterally General nose exam: Normal external nose present Face and sinus: Yes normal facial exam Mouth: Normal oral and palatal mucosa present Throat: Yes posterior oropharynx normal Eyes: General: appearance normal, both eyes and all related structures Pupils: Equal, round and reactive pupils present Neck: Neck: Yes normal visual inspection Chest: Chest palpation & inspection: normal inspection of the chest Resp: Effort & Inspection: normal respiratory effort Auscultation: clear to auscultation bilaterally Cardio: Rate: regular rate Rhythm: regular rhythm Peripheral pulses: Peripheral pulses 2+ throughout GI: Inspection: Yes normal to inspection Palpation (GI): Soft to palpation and nontender Auscultation: normal bowel sounds Back/Spine/Pelvis: Thoracic/Lumbar Spine: thoracic and lumbar spine normal to inspection Skin: General skin exam: no rashes or lesions noted Neuro: General: patient oriented x3, no focal motor deficits and normal sensation to monofilament Cranial nerves: Yes CN's II-XII intact bilaterally, Yes Equal, round and reactive pupils present, Yes Bilaterally intact EOM present, Yes Nystagmus not present, Yes Normal facial strength present and Yes Midline tongue present Cognition (Neuro): normal cognition Speech: No Abnormal speech present Gait exam (Neuro): Normal gait present Motor exam (neuro): 5/5 motor strength present throughout Sensory Exam: Normal double simultaneous stimulation for sensation Coordination: [id number] test normal, [id number] test normal and tandem gait normal Extrem: General: Yes normal to inspection, Yes no pedal edema and Yes no calf tenderness Course Course Course Narrative: 30-year-old male here with episode of dizziness, palpitations, shortness of breath, numbness in the hands and around the mouth which lasted ap proximately 15 minutes. Now resolved. Patient tells me history of panic attacks and this feels similar. Normal neuro exam. Hemodynamically stable. EKG shows no acute finding. Will monitor briefly with plan for discharge home Patient tells me that he currently has a therapist that he sees. He is on the list for a psychiatrist that he may initiate medications for his anxiety. 1730-patient monitored for brief time with no recurrence of symptoms. He is feeling improved like to be discharged home. Recommend he follow-up with his therapist and continue to wait on his list for psychiatrist. Reviewed worrisome signs and symptoms of when to return to the emergency department. Comfortable discharge home. MDM - Arrhythmia/Palpitations Medical Records Attestation: I reviewed the patient's medical records. Lab Data Attestation: I reviewed the patient's lab results. ECG Data Attestation: I personally reviewed and interpreted this ECG as follows: ECG interpretation date: 08/15/21 ECG interpretation time: 16:05 Interpretation: Normal sinus rhythm with rate of 83, normal MS, normal QRS, normal QT Discharge Plan Discharge Clinical Impression: Anxiety Patient Disposition: Home, Self-Care Instructions: Anxiety (ED) Additional Instructions: Follow-up with your therapist as scheduled Stay on the list to see a psychiatrist Prescriptions: New hydroxyzine HCl 25 mg tablet 25 mg PO TID PRN (Reason: anxiety) Qty: 10 RF: 0 No Action metoprolol succinate [Toprol XL] 25 mg tablet extended release 24 hr 12.5 mg PO DAILY Qty: 30 RF: 0 hydroxyzine HCl 25 mg tablet 25 mg PO BID PRN (Reason: anxiety) Qty: 7 RF: 0 hydroxyzine HCl 25 mg tablet 25 mg PO TID PRN (Reason: anxiety) Qty: 10 RF: 0 lorazepam [Ativan] 1 mg tablet 1 mg PO BID PRN (Reason: anxiety) Qty: 7 RF: 0 Referrals: [facility] [Primary Care Provider] - 2 days Interventions: ED Discharge Assessment Last Done: 08/15/21 17:26 Discharge Date/Time: 08/15/21 18:10
== END 2021-08-15 18:10 | disposition home or self-care (01) ==
PROVIDERS: Emergency Provider Internal Medicine
DX: F41.1 Generalized anxiety disorder (principal); F43.0 Acute stress reaction; R00.2 Palpitations; R42 Dizziness and giddiness; Z79.899 Other long term (current) drug therapy
CPT/HCPCS: 93005; 99283; 99284

== ENCOUNTER 2022-06-18 02:55 | Emergency (ER) | payer MEDICAID, SELFPAY ==
--- NOTE | ~2022-06-18 | XR_ITS ---
EXAMINATION: XR CHEST CLINICAL INFORMATION: Chest pain COMPARISON: 05/05/2021 TECHNIQUE: Frontal view of the chest was obtained. FINDINGS: The lungs are clear with no focal consolidation. No evidence of pneumothorax, pulmonary edema, or pleural effusions. The cardiomediastinal silhouette is unremarkable. No acute osseous findings. XR/XR chest 1V IMPRESSION: No acute cardiopulmonary findings.
[2022-06-18 03:17] VITALS: BP 130/90; PULSE 100; O2SAT 99
--- NOTE | 2022-06-18 03:17 | ECG_ITS ---
Test Reason : CHEST TIGHTNESS Blood Pressure : / mmHG Vent. Rate : 104 BPM Atrial Rate : 104 BPM P-R Int : 138 ms QRS Dur : 088 ms QT Int : 318 ms P-R-T Axes : 076 116 036 degrees QTc Int : 418 ms Sinus tachycardia Possible Lateral infarct , age undetermined Possible Inferior infarct (cited on or before 15-AUG-2021) Abnormal ECG When compared with ECG of 15-AUG-2021 16:05, QRS axis Shifted right Referred By: Anabela Aguero Electronically Signed By:Mat Ferreira
--- NOTE | 2022-06-18 03:25 | ED.CHESTPAIN ---
HPI - Chest Pain General Chief Complaint: General Medical Stated Complaint: chest tightness/covid+ Time Seen by Provider: 06/18/22 03:16 Source: patient Mode of arrival: EMS Limitations: no limitations History of Present Illness HPI narrative: COVID + at home 06/17 symptoms started monday felt chest pain and palpitations 1 hour prior to arrival MD complaint: chest pain Pertinent past history: other (anxiety/palpitations) Onset (ago): day(s) (1 hour prior to arrival ) Timing of current episode: constant Prior episodes: Yes Onset: during rest Pain location: substernal Pain radiation: none Severity: mild Quality: tightness Relieving factors: nothing Exacerbating factors: nothing Context: recent illness Associated symptoms: dyspnea and palpitations Treatment prior to arrival: none Related Data Previous Rx's Medication Instructions Recorded metoprolol succinate 25 mg 12.5 mg PO DAILY #30 tabs 03/26/21 tablet,extended release 24 hr (Toprol XL) hydroxyzine HCl 25 mg tablet 25 mg PO BID PRN anxiety #7 tabs 04/03/21 hydroxyzine HCl 25 mg tablet 25 mg PO TID PRN anxiety #10 tabs 05/05/21 lorazepam 1 mg tablet (Ativan) 1 mg PO BID PRN anxiety #7 tabs 06/25/21 hydroxyzine HCl 25 mg tablet 25 mg PO TID PRN anxiety #10 tabs 08/15/21 Allergies Allergy/AdvReac Type Severity Reaction Status Date / Time penicillin V Allergy Unknown Hives Verified 04/03/21 01:02 Penicillins [PCN] Allergy Unknown UNKNOWN Verified 04/03/21 01:02 Review of Systems Review of Systems: Constitutional : No Weight loss, No Fever, No Chills ENT/Mouth : No sore throat, No Rhinorrhea Eyes: No Eye Pain, No Swelling Cardiovascular : pos Chest Pain, no SOB, no Dyspnea on Exertion, No Orthopnea, No Edema, pos Palpitations Respiratory : No Cough, No Sputum Gastrointestinal : no Nausea, No Vomiting, No Diarrhea, No abdominal Pain, No Hematochezia, No Melena Genitourinary : No Dysuria, No Urinary Frequency Musculoskeletal : No joint pain, No Myalgias, No Joint Swelling Skin : No Skin Lesions, No rash Neuro : No Weakness, No Numbness, No Dizziness, No Headache Psych : No Anxiety/Panic, No Depression Heme/Lymph: No Bruising, No Lymphadenopathy Endocrine : No Polyuria, No Polydipsia All other systems reviewed and are negative [facility]LY [facility] Past Medical History Attestation statement: The following information was validated with the patient. Medical History Anxiety Heart palpitations Social History Social History Alcohol intake: never Patient Tobacco Use Status: Never used Tobacco Advance Directives: No Advance Directives Information Provided: No Physical Exam Vital Signs: Vital Signs: Last Vital Signs Temp 98.7 F 06/18/22 03:32 Pulse 109 H 06/18/22 03:32 Resp 16 06/18/22 03:32 BP 123/91 H 06/18/22 03:32 Pulse Ox 98 06/18/22 03:32 O2 Del Method 06/18/22 03:32 BMI result Body Mass Index 31.8 Appearance: Alert. Oriented X3. No acute distress. Anxious Eyes: Pupils equal, round and reactive to light. ENT: Pharynx normal. Neck: Normal inspection. Neck supple. CVS: tachycardic heart rate and rhythm. Pulses normal. Respiratory: No respiratory distress. Breath sounds normal. Abdomen: Soft and nontender. Skin: Skin warm and dry. Normal skin color. Normal skin turgor. Extremities: No lower extremity edema. No calf ttp Neuro: Oriented X 3. No motor deficit. No sensory deficit. Course Course Course Narrative: ddimer negative, EKG unchanged, trop negative, stable for DC MDM - Chest Pain MDM Narrative Medical decision making narrative: 31 yo male with hxof anxiety and palpitations tested positive for COVID had pain 1 hour ago and palpitations - at this time will obtain EKG, CXR, troponin and ddimer - seems anxiety related - doubt PE, myocarditis. Dispo per results and findings. Lab Data Result diagrams: 06/18/22 03:55 06/18/22 03:55 Labs: Lab Results 06/18/22 06/18/22 06/18/22 Range/Units 03:55 03:55 03:55 WBC 6.0 (4.8-10.8) X10*3/uL RBC 5.92 H (4.60-5.80) X10*6/uL Hgb 16.5 (14.0-18.0) g/dl Hct 47.4 (42.0-52.0) % MCV 80.1 (80.0-98.0) fL MCH 27.9 (27.0-33.0) pg MCHC 34.8 (31.0-36.0) g/dl RDW 13.2 (11.0-16.0) % Plt Count 151 L (160-400) X10*3/uL MPV 11.1 (9.4-12.4) fL Immature Gran % (Auto) 0.2 (0.0-0.4) % Neut % (Auto) 46.3 (45-73) % Lymph % (Auto) 39.1 (20-40) % [place] % (Auto) 12.6 H (2-11) % Eos % (Auto) 1.5 (0-4) % Baso % (Auto) 0.3 (0-2) % Lymph # (Auto) 2.4 (1.2-4.9) X10*3/uL [place] # (Auto) 0.8 (0.1-1.2) X10*3/uL Eos # (Auto) 0.1 (0.0-0.4) X10*3/uL Baso # (Auto) 0.0 (0.0-0.2) X10*3/uL Abs Immat Gran (auto) 0.01 (0.00-0.03) X10*3/uL Absolute Neuts (auto) 2.8 (2.0-8.3) x10*3/uL Absolute Nucleated RBC 0.000 (0.0-0.012) X10*3/uL Nucleated RBC % (auto) 0.0 (0.0-0.2) /100WBC D-Dimer High Sensitivty < 150 NG/ML Sodium 135 (135-145) mmol/L Potassium 3.7 (3.3-5.1) mmol/L Chloride 101 (96-108) mmol/L Carbon Dioxide 25 (22-29) mmol/L Anion Gap 13 (12-20) BUN 11 (9-16) mg/dL Creatinine 0.93 (0.5-1.4) mg/dL Estim Creat Clear Calc 145.1 Estimated GFR > 60 Random Glucose 92 (60-115) mg/dL Calcium 9.2 (8.4-10.2) mg/dL Troponin I High Sens (<3.5-35.0) ng/L COVID-19 (ELISABET) (Negative) COVID-19 Clin Com 06/18/22 06/18/22 Range/Units 03:55 03:58 WBC (4.8-10.8) X10*3/uL RBC (4.60-5.80) X10*6/uL Hgb (14.0-18.0) g/dl Hct (42.0-52.0) % MCV (80.0-98.0) fL MCH (27.0-33.0) pg MCHC (31.0-36.0) g/dl RDW (11.0-16.0) % Plt Count (160-400) X10*3/uL MPV (9.4-12.4) fL Immature Gran % (Auto) (0.0-0.4) % Neut % (Auto) (45-73) % Lymph % (Auto) (20-40) % [place] % (Auto) (2-11) % Eos % (Auto) (0-4) % Baso % (Auto) (0-2) % Lymph # (Auto) (1.2-4.9) X10*3/uL [place] # (Auto) (0.1-1.2) X10*3/uL Eos # (Auto) (0.0-0.4) X10*3/uL Baso # (Auto) (0.0-0.2) X10*3/uL Abs Immat Gran (auto) (0.00-0.03) X10*3/uL Absolute Neuts (auto) (2.0-8.3) x10*3/uL Absolute Nucleated RBC (0.0-0.012) X10*3/uL Nucleated RBC % (auto) (0.0-0.2) /100WBC D-Dimer High Sensitivty NG/ML Sodium (135-145) mmol/L Potassium (3.3-5.1) mmol/L Chloride (96-108) mmol/L Carbon Dioxide (22-29) mmol/L Anion Gap (12-20) BUN (9-16) mg/dL Creatinine (0.5-1.4) mg/dL Estim Creat Clear Calc Estimated GFR Random Glucose (60-115) mg/dL Calcium (8.4-10.2) mg/dL Troponin I High Sens < 3.5 (<3.5-35.0) ng/L COVID-19 (ELISABET) Positive A (Negative) COVID-19 Clin Com See Note ECG Data ECG #1: Attestation: I personally reviewed and interpreted this ECG as follows: ECG interpretation date: 06/18/22 ECG interpretation time: 03:59 Interpretation: Rate: 104 Rhythm: sinus tachycardia [place]: normal Normal P waves. Normal AGNES. Normal QRS complex. ST T wave : no COLLIN qTC: normal prior studies: no sig change from prior The study has been interpreted contemporaneously by me. . Discharge Plan Discharge Clinical Impression: Heart palpitations, Atypical chest pain, COVID-19 Patient Disposition: Home, Self-Care Instructions: Chest Pain (ED), Heart Palpitations (ED), COVID-19 (Coronavirus Disease 2019) (ED) Additional Instructions: return to ED for any worsening symptoms or concerns wear a mask protect others, quarantine if you become so short of breath you cannot walk to your own bathroom please seek medical care Prescriptions: No Action metoprolol succinate [Toprol XL] 25 mg tablet extended release 24 hr 12.5 mg PO DAILY Qty: 30 0RF hydroxyzine HCl 25 mg tablet 25 mg PO TID PRN (Reason: anxiety) Qty: 10 0RF hydroxyzine HCl 25 mg tablet 25 mg PO BID PRN (Reason: anxiety) Qty: 7 0RF hydroxyzine HCl 25 mg tablet 25 mg PO TID PRN (Reason: anxiety) Qty: 10 0RF lorazepam [Ativan] 1 mg tablet 1 mg PO BID PRN (Reason: anxiety) Qty: 7 0RF Rx Instructions: Use as needed for anxiety, may cause drowsiness so no driving for 6 hours after taking Stand Alone Forms: Work/School Release
[2022-06-18 03:32] VITALS: BP 123/91; PULSE 109; RESP 16; TEMP 37.1; O2SAT 98; BMI 31.8
[2022-06-18 04:01] LABS: MANUAL DIFF FLAG NO
[2022-06-18 04:04] LABS: Basophils Percent Auto 0.3 % (0-2); Eosinophils Absolute Auto 0.1 X10*3/uL (0.0-0.4); Eosinophils Percent Auto 1.5 % (0-4); Hematocrit 47.4 % (42.0-52.0); Hemoglobin 16.5 g/dl (14.0-18.0); Imm Gran Abs Auto 0.01 X10*3/uL (0.00-0.03); Imm Gran Pct Auto 0.2 % (0.0-0.4); Lymphocytes Absolute Auto 2.4 X10*3/uL (1.2-4.9); Lymphocytes Percent Auto 39.1 % (20-40); Mean Corpuscular HGB Conc 34.8 g/dl (31.0-36.0); Mean Corpuscular Hemoglobin 27.9 pg (27.0-33.0); Mean Corpuscular Volume 80.1 fL (80.0-98.0); Mean Platelet Volume 11.1 fL (9.4-12.4); Monocytes Absolute Auto 0.8 X10*3/uL (0.1-1.2); Monocytes Percent Auto 12.6 % (2-11); Neutrophils Absolute Auto 2.8 x10*3/uL (2.0-8.3); Neutrophils Percent Auto 46.3 % (45-73); Platelet Count 151 X10*3/uL (160-400); Red Blood Count 5.92 X10*6/uL (4.60-5.80); Red Cell Distribution Width 13.2 % (11.0-16.0)
[2022-06-18 04:10] LABS: COVID-19 Test Positive (Negative)
[2022-06-18 04:18] LABS: D Dimer High Sensitivity < 150 NG/ML
[2022-06-18 04:20] LABS: Anion Gap 13 (12-20); Blood Urea Nitrogen 11 mg/dL (9-16); Calcium 9.2 mg/dL (8.4-10.2); Carbon Dioxide 25 mmol/L (22-29); Chloride 101 mmol/L (96-108); Creatinine Clr Calc Pharmacy 145.1; Estimated Glomerular Filt Rate > 60; Glucose Random 92 mg/dL (60-115); Potassium 3.7 mmol/L (3.3-5.1); Sodium 135 mmol/L (135-145)
[2022-06-18 04:21] LABS: Troponin-I High Sensitivity < 3.5 ng/L (<3.5-35.0)
== END 2022-06-18 05:10 | disposition home or self-care (01) ==
PROVIDERS: Emergency Provider Emergency Medicine
DX: U07.1 COVID-19 (principal); R07.89 Other chest pain; R00.2 Palpitations
CPT/HCPCS: 71045; 80048; 84484; 85025; 85379; 87635; 93005; 99283; 99284

== ENCOUNTER 2024-06-22 16:21 | Emergency (ER) | payer MEDICAID, SELFPAY ==
[2024-06-22 16:27] VITALS: BP 143/94; PULSE 115; RESP 18; TEMP 36.8; O2SAT 98; BMI 33.0
--- NOTE | 2024-06-22 17:00 | ED.DENTAL ---
HPI - Dental/Oral General Chief complaint: Dental/Oral Stated complaint: 2 cracked molars Time Seen by Provider: 06/22/24 16:38 Source: patient Mode of arrival: ambulatory Limitations: no limitations History of Present Illness ED Provider: Mayelin Bennett APRN HPI Narrative: 33-year-old male with no known medical history here with dental pain for a long time now worsening over the last week. Noticed left facial swelling over the last few days. No fevers, chills, difficulty breathing or difficulty swallowing Related Data Previous Rx's ?Medication ?Instructions ?Recorded metoprolol succinate 25 mg 12.5 mg (1/2 x 25 mg) PO DAILY #30 03/26/21 tablet,extended release 24 hr tabs (Toprol XL) hydroxyzine HCl 25 mg tablet 25 mg PO BID PRN anxiety #7 tabs 04/03/21 hydroxyzine HCl 25 mg tablet 25 mg PO TID PRN anxiety #10 tabs 05/05/21 lorazepam 1 mg tablet (Ativan) 1 mg PO BID PRN anxiety #7 tabs 06/25/21 hydroxyzine HCl 25 mg tablet 25 mg PO TID PRN anxiety #10 tabs 08/15/21 clindamycin HCl 150 mg capsule 150 mg PO TID #21 caps 06/22/24 ibuprofen 600 mg tablet 600 mg PO Q8H PRN pain #20 tabs 06/22/24 Allergies Allergy/AdvReac Type Severity Reaction Status Date / Time penicillin V Allergy Unknown Hives Verified 06/22/24 16:29 Penicillins [PCN] Allergy Unknown UNKNOWN Verified 06/22/24 16:29 Review of Systems Review of Systems: Yes all other systems are reviewed and are negative Constitutional: Constitutional: Reports no additional constitutional complaints, Denies body ache(s), Denies chills, Denies fever(s), Denies headache(s) and Denies weakness Eyes: Eyes: Reports no additional eye complaints and Denies change in vision ENT: Reports system reviewed and no additional complaints, except as documented, Reports dental pain, Denies dizziness, Denies headache(s), Denies nasal congestion, Denies nasal discharge and Denies neck pain Cardiovascular: Cardiovascular: Reports no additional cardiovascular complaints, Denies chest pain, Denies leg edema and Denies dyspnea Respiratory: Respiratory: Reports no additional respiratory complaints, Denies cough and Denies dyspnea Gastrointestinal: Gastrointestinal: Reports no additional gastrointestinal complaints, Denies abdominal pain, Denies diarrhea, Denies nausea and Denies vomiting Genitourinary: Genitourinary: Denies urinary incontinence Musculoskeletal: Musculoskeletal: Reports no additional musculoskeletal complaints, Denies back pain, Denies arthralgias, Denies joint swelling, Denies neck pain, Denies numbness and Denies tingling Integumentary/Breasts: Skin/Breast: Reports system reviewed and no additional complaints, except as docu and Denies rash Neurologic: Reports system reviewed and no additional complaints, except as documented, Denies Abnormal speech present, Denies dizziness, Denies headache(s), Denies numbness, Denies tingling and Denies weakness [facility] Past Medical History Attestation statement: The following information was validated with the patient. Source: old records reviewed and nursing notes reviewed Medical History Heart palpitations Anxiety Social History Social History Alcohol intake: never Patient Tobacco Use Status: Never used Tobacco Advance Directives: No Advance Directives Information Provided: No Physical Exam Vital Signs: Vital Signs: Last Vital Signs Temp 98.3 F 06/22/24 16:27 Pulse 115 H 06/22/24 16:27 Resp 18 06/22/24 16:27 BP 143/94 H 06/22/24 16:27 Pulse Ox 98 06/22/24 16:27 O2 Del Method Room Air 06/22/24 16:27 BMI result Body Mass Index 33.0 Const: General: cooperative, healthy appearing, comfortable and no acute distress Orientation/consciousness: patient oriented x3 Limitations: no limitations HEENT: Other: no trismus Head: Yes normal to inspection Ears: hearing grossly normal bilaterally and TM's normal bilaterally General nose exam: Normal external nose present Face and sinus: Yes normal facial exam Mouth: Normal oral and palatal mucosa present Teeth image: 1. broken molar 2. broken molar with swelling, tenderness around the gumline Throat: Yes posterior oropharynx normal Eyes: General: appearance normal, both eyes and all related structures Pupils: Equal, round and reactive pupils present Neck: Neck: Yes normal visual inspection, Yes full ROM, Yes no lymphadenopathy and Yes no meningeal signs Chest: Chest palpation & inspection: normal inspection of the chest Resp: Effort & Inspection: normal respiratory effort Auscultation: clear to auscultation bilaterally Cardio: Rate: regular rate Rhythm: regular rhythm Peripheral pulses: Peripheral pulses 2+ throughout GI: Inspection: Yes normal to inspection Palpation (GI): Soft to palpation and nontender Auscultation: normal bowel sounds Back/Spine/Pelvis: Thoracic/Lumbar Spine: thoracic and lumbar spine normal to inspection Skin: General skin exam: no rashes or lesions noted Neuro: General: patient oriented x3, no meningeal signs, no focal motor deficits and normal sensation to monofilament Cranial nerves: Yes Equal, round and reactive pupils present Cognition (Neuro): normal cognition Speech: No Abnormal speech present Gait exam (Neuro): Normal gait present Motor exam (neuro): 5/5 motor strength present throughout Extrem: General: Yes normal to inspection Medical Decision Making Medical Decision Making MDM Narrative: 33-year-old male with no known medical history here with dental pain for a long time now worsening over the last week. Noticed left facial swelling over the last few days. No fevers, chills, difficulty breathing or difficulty swallowing +caries Left lower dental broken tooth with swelling/tenderness along gumline. ?abscess. Attempted aspiration-unsuccessful. NO trismus and patient is tolerating secretions with no difficulty. Initiate oral antibiotics, analgesia and recommend follow up outpatient with dental clinic Differential Diagnosis Differential Diagnoses: The differential diagnosis associated with the presentation includes Dental infection, dental abscess, low concern for Edward's angina, cellulitis, osteomyelitis, deeper space infection Admission/Observation Consideration of admission/observation: Escalation of care including admission/observation considered low concern for Edward's angina, cellulitis, osteomyelitis, deeper space infection requiring advanced imaging, urgent consultation and or transfer Tests considered The following testing was considered but not selected: low concern for Edward's angina, cellulitis, osteomyelitis, deeper space infection requiring advanced imaging Prescription Management I considered prescription management with: Antibiotic Discharge Plan Discharge Clinical Impression: Dental abscess Patient Disposition: Home, Self-Care Instructions: Dental Abscess (ED) Additional Instructions: Saltwater gargle Topical Orajel Take medications as prescribed Follow-up with a dentist Prescriptions: New clindamycin HCl 150 mg capsule 150 mg PO TID Qty: 21 0RF ibuprofen 600 mg tablet 600 mg PO Q8H PRN (Reason: pain) Qty: 20 0RF No Action metoprolol succinate [Toprol XL] 25 mg tablet extended release 24 hr 12.5 mg PO DAILY Qty: 30 0RF hydroxyzine HCl 25 mg tablet 25 mg PO TID PRN (Reason: anxiety) Qty: 10 0RF hydroxyzine HCl 25 mg tablet 25 mg PO BID PRN (Reason: anxiety) Qty: 7 0RF hydroxyzine HCl 25 mg tablet 25 mg PO TID PRN (Reason: anxiety) Qty: 10 0RF lorazepam [Ativan] 1 mg tablet 1 mg PO BID PRN (Reason: anxiety) Qty: 7 0RF Rx Instructions: Use as needed for anxiety, may cause drowsiness so no driving for 6 hours after taking Referrals: Physician,None [Primary Care Provider] - 1 week Stand Alone Forms: Work/School Release Print Language: Danish
[2024-06-22 17:24] VITALS: BP 143/94; PULSE 115; RESP 18; TEMP 36.8; O2SAT 98
== END 2024-06-22 17:27 | disposition home or self-care (01) ==
PROVIDERS: Emergency Provider Emergency Medicine
DX: K04.7 Periapical abscess without sinus (principal); K08.89 Other specified disorders of teeth and supporting structures
CPT/HCPCS: 99282; 99283